=== PATIENT | female | born 1970 | race Caucasian/White ===

== ENCOUNTER → 2023-12-25 12:59 | Outpatient (REF) | payer BC, SELFPAY | LOC: RCS 12:59 | PROVIDERS: ATTENDING PHYSICIAN Family Medicine | DX: R00.2 Palpitations (principal) | CPT/HCPCS: 93225; 93226 ==

== ENCOUNTER → 2024-05-06 14:08 | Outpatient (REF) | payer BC, SELFPAY | LOC: WDC 14:08 | PROVIDERS: ATTENDING PHYSICIAN Obstetrics & Gynecology; FAMILY PHYSICIAN Family Medicine | DX: Z12.31 Encounter for screening mammogram for malignant neoplasm of breast (principal) | CPT/HCPCS: 77063; 77067 ==

== ENCOUNTER 2025-03-23 06:16 | Day surgery (SDC) | payer BC, SELFPAY | END 2025-03-23 14:57 | disposition home or self-care (01) | LOC: GI 06:16 | PROVIDERS: ATTENDING PHYSICIAN Internal Medicine Gastroenterology | DX: Z12.11 Encounter for screening for malignant neoplasm of colon (principal); K64.8 Other hemorrhoids; D12.2 Benign neoplasm of ascending colon; K63.5 Polyp of colon; K63.89 Other specified diseases of intestine; Z83.719 Family history of colon polyps, unspecified | CPT/HCPCS: 45385; 45380; 88305 ==